=== PATIENT | female | born 1985 | race Caucasian/White ===

== ENCOUNTER 2022-12-20 16:40 | Emergency (ER) | payer OTHER ==
--- NOTE | 2022-12-20 17:35 | CT Report ---
PROCEDURE: CT brain without contrast INDICATIONS: fall, cont headache TECHNIQUE: Noncontrast 4.5 mm thick angled axial sections acquired from the foramen magnum to the vertex. For r adiation dose reduction, the following was used: automated exposure control, adjustment of mA and/or kV according to patient size. COMPARISON: None. FINDINGS: Image quality: Excellent. CSF spaces: Basal cisterns are patent. No extra-axial fluid collections. Ventricles are normal in size and shape. Brain: No midline shift. No intracranial masses or hemorrhage. Fink-white matter interface is norm al. Skull and face: Calvarium and visualized facial bones are intact, without suspicious lesions. Sinuses: Visualized sinuses and mastoids are clear. IMPRESSION: Normal CT of the brain Reviewed by: Segundo Mazariegos MD on 12/20/2022 4:33 PM AKDIANA Approved by: Segundo Mazariegos MD on 12/20/2022 4:33 PM AKDIANA Station ID: [id number]
[2022-12-20] MEDS ORDERED: KETOROLAC 60 MG/2 ML VIAL IM STA (18:03)
[2022-12-20] MEDS ORDERED: PROMETHAZINE 25 MG/1 ML VIAL IM STA (18:03)
[2022-12-20] MEDS ORDERED: diphenhydrAMINE INJ 50 MG/ML VIAL IM STA (18:03)
--- NOTE | 2022-12-20 19:20 | ED Physician Documentation ---
History of Present Illness - Stated complaint Stated Complaint: GLF HEADACHES - Chief complaint Chief Complaint: Trauma Hd/Nk - History obtained from History obtained from: Patient, Family - History of Present Illness Pain level max: 8 Pain level now: 6 - Additonal information Additional information: Patient is a 37-year-old female who presents to the emergency department after ground-level fall 2 days ago which she struck her head and had positive loss of consciousness. Since that time she has had gradually worsening headache. Hi story of migraines in the past, states that this feels similar. No vomiting. Occasional nausea. No fevers. No chills. She fell onto laminate yee. No neck or back pain. Denies any possibility of . Took ibuprofen without relief. Review of Systems Constitutional: denies: Fever, Chills Eyes: reports: Photophobia : denies: Dysuria, Now EGA Skin: denies: Rash Musculoskeletal: denies: Neck pain, Back pain Neurologic: denies: Focal weakness, Numbness PD PAST MEDICAL HISTORY - Past Medical History Past Medical History: No - Allergies Allergies/Adverse Reactions: Allergies Allergy/AdvReac Type Severity Reaction Status Date / Time codeine Allergy Hives Verified 12/20/22 17:07 oxycodone Allergy Hives Verified 12/20/22 17:07 "codones" Allergy Hives Uncoded 12/20/22 17:07 - Living Situation Living Situation: reports: With family Living Arrangement: reports: At home - Social History Does the pt have substance abuse?: No - Family History Family history: reports: Non contributory PD ED PE NORMAL - Vitals Vital signs reviewed: Yes - General General: Alert and oriented X 3, No acute distress - HEENT HEENT: Atraumatic, PERRL, Moist mucous membranes - Neck Neck: Supple, no meningeal sign - Cardiac Cardiac: RRR, Strong equal pulses - Respiratory Respiratory: No respiratory distress, Clear bilaterally - Abdomen Abdomen: Soft, Non tender, Non distended - Derm Derm: Warm and dry - Extremities Extremities: No edema, No calf tenderness / cord - Neuro Neuro: Alert and oriented X 3, home care manager 2-12 intact, No motor deficit, No sensory deficit, Normal speech Eye Opening: Spontaneous Motor: Obeys Commands Verbal: Oriented GCS Score: 15 - Psych Psych: Normal mood, Normal affect Results - Vitals Vitals: Vital Signs - 24 hr 12/20/22 12/20/22 12/20/22 17:03 18:29 19:15 Temperature 36.2 C L 37.0 C Heart Rate 77 87 68 Respiratory 16 16 Rate Blood Pressure 130/78 130/81 H O2 Saturation 99 100 100 Oxygen O2 Source Room air - Rads (name of study) Head CT Relevant Findings:: Final report received, See rad report PD Medical Decision Making - ED course Complexity details: reviewed results, re-evaluated patient, considered differential, d/w patient, d/w family ED course: 37-year-old female status post ground-level fall and head injury 2 days ago, pos itive loss of consciousness. Ongoing headache since that time. Given Toradol, Phenergan, Benadryl IM. Headache resolved. Head CT is negative. We will treat as a possible concussion versus migraine following her closed head injury. Head injury instructions given at bedside. Patient counseled regarding signs and symptoms for which I believe and urgent re-evaluation would be necessary. Patient with good understanding of and agreement to plan and is comfortable going home at this time This document was made in part using voice recognition software. While efforts are made to proofread this document, sound alike and grammatical errors may occur. Departure - Departure Disposition: 01 Home, Self Care Clinical Impression: Closed head injury Qualifiers: Encounter type: initial encounter Qualified Code(s): S09.90XA - Unspecified injury of head, initial encounter Condition: Good Instructions: ED Head Injury Closed Follow-Up: your,doctor in 1 week [Other] Comments: Please follow-up with your doctor in 1 week if not better. Go home and rest tonight. Your head CT does not show any acute abnormalities. Please return if you worsen. Discharge Date/Time: 12/20/22 19:26
[2022-12-20 19:23] VITALS: BP 130/81
== END 2022-12-20 19:26 | disposition home or self-care (01) ==
LOC: ED 16:40
DX: S09.90XA Unspecified injury of head, initial encounter (principal); W18.30XA Fall on same level, unspecified, initial encounter
CPT/HCPCS: 70450; 96372; 99283; 99284; J1200

== ENCOUNTER 2023-03-12 12:56 | Outpatient (CLI) | payer OTHER ==
--- NOTE | 2023-03-12 13:44 | Sleep Patient Instructions ---
Sleep Center Visit Summary - Patient Visit Information Reason for Visit: Initial consult - Patient Instructions Instructions Attached: Sleep Study, Sleep Clinic Visit, Sleep Study Home Monitor Additional Instructions: You will be completing a sleep study, either an in-lab polysomnography (PSG) or home sleep study (HST). You will follow-up in the sleep care office after the sleep study is completed to hear the results and talk about therapy, if needed. You will be called by our office staff to schedule this appointment, but you may contact us with any questions. - Clinic Information Contact: [facility] [address] [place] [id number] [email or web address] T: [phone]
--- NOTE | 2023-03-12 13:55 | SLEEP CARE CONSULTATION ---
Information from patient questionnaire entered by Kush Stanford. I have reviewed and concur with the information entered by Kush Stanford. This document represents the service I personally performed and the decisions made by me, Isela Hameed ARNP. History of Present Illness Service Date and Time: 03/12/2023 1256 Reason for Visit: New patient Chief Complaint: reports: Snoring, Excessive daytime sleepiness, Observed pauses in breathing, Fatigue, Frequent awakenings at night Date of Onset: 7YRS Usual bedtime: 10PM Time it takes to fall asleep: WITHIN A YR Snores at night: Yes Observed to quit breathing while asleep: Yes Sleeps alone due to snoring: Yes Number of times waking at night: 2-3 Reasons for waking at night: reports: Snoring, Gasping for air (not recently), Bathroom, Other (DREAMS). denies: Choking Toss, Turn, or Twitch while sleeping: Yes Recalls having dreams: Yes (sometimes) Usually gets out of bed at: 7-730AM; 8-10AM Feels refreshed in the morning: No Morning headache: Yes (2 times a month, last couple hours) Sleepy or fatigued during the day: Yes Ever fallen asleep while driving: No Takes day naps: Yes (rare, does not like to take a nap, gets grumpy) Dreams during day naps: No Prior sleep studies: Yes Year and Where: last one in [place], [place] at [facility] Additional HPI information: I had the pleasure of seeing KUSH PENA today regarding the possibility of her having a sleep disorder. Her current complaints are snoring, excessive daytime sleepiness, observed pauses in breathing, fatigue and frequent night awakenings. She states she has been diagnosed twice with sleep apnea. Her is in the and she has had to move before she could be set up with treatment. Her last test was done last year at [facility] in 2021 and she says she was told she had moderate sleep apnea. She states her is not sleeping in same room because of her loud snoring. He has told her that she stops breathing during the night. She has woke herself up gasping for air in the past. She has lost weight and then gained some back. She says her snoring was worse when she was thinner. She is always tired but tries to avoid napping because it makes her grumpy. 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 Patient is and lives in . Have you smoked in the past 12 months: No Alcohol use: Yes Alcohol amount and frequency: 1 GLASS ONCE IN A WHILE Caffeine use: Yes Caffeine amount and frequency: 2 CUPS IN THE MORNING Family History Family history of sleep disordered breathing: Yes Family Hx Sleep Apnea: Mother: Snoring, Sleep apnea - Untreated, Sibling: Snoring, Grandparent: Snoring, Sleep apnea - Treated Allergies and Home Medications Known drug allergies: Yes (as listed) Drug allergies reviewed: Yes Home medication list reviewed: Yes Allergy and home medication list: Allergies codeine Allergy (Verified 03/11/23 14:59) Hives oxycodone Allergy (Verified 03/11/23 14:59) Hives "codones" Allergy (Uncoded 03/11/23 14:59) Hives Medications: Wellbutrin XL 150 mg x 3 daily Hydroxyzine 25 mg, prn Hyoscyamine 0.125 mg, 1-2 tabs, as needed Review of Systems Weight gain over past 5 years: 40 Weight loss over past 5 years: 60 Cardiovascular: denies: high blood pressure Gastrointestinal: reports: other (has acid reflux occasionally). denies: heartburn Neurological: reports: headaches Psychiatric: reports: anxiety, depression Ear/Nose/Throat: reports: nasal congestion, sinus problems, nose bleeds, dry mouth/throat, tonsillectomy, wisdom teeth removed Physical Exam Vital signs obtained and entered by: KUSH Lloyd MA Blood Pressure: 128/76 (LEFT ARM) Cuff size: regular Heart Rate: 73 O2 Saturation: 98 Height: 5 ft 5 in Weight: 213 lb 12.8 oz Body Mass Index: 35.6 BMI Classification: Obese Neck circumference: 15.75 Mouth and throat: narrow oropharynx Soft palate: long Hard palate: normal Uvula: normal Uvula visualization: 0% Mallampati Class IV Tongue: enlarged in size with teeth ventura on lateral edges Tonsils: absent bilaterally Neck: normal w/o lymphadenopathy or thyromegaly Heart: regular rate and rhythm Lungs: clear bilaterally Impression and Plan 1. Suspected Obstructive Sleep Apnea-Hypopnea Syndrome, as previously diagnosed and as suggested by a history of loud and irregular snoring, observed cessation of breath while asleep, gasping or choking in sleep, morning headache, frequent awakening during the night, unrefreshed sleep, cognitive impairment, and excessive daytime sleepiness. Narrow oropharynx and obesity are common predisposing factors for obstructive sleep apnea-hypopnea syndrome. I recommend proceeding to polysomnography to confirm the diagnosis and to assess severity. If the patient has significant sleep disordered breathing, a manual CPAP titration study will also be performed to find the optimal treatment pressure. I informed the patient of what the sleep studies involve and after some discussion, obtained agreement to proceed. The pathophysiology of obstructive sleep apnea-hypopnea syndrome was discussed with the patient and health risks of cardiovascular and cerebrovascular disease if not treated. Risks of drowsy driving discussed in detail and patient advised to avoid long distance driving and to tack puller at the first sign of drowsiness. Patient agreed to plan. * Schedule polysomnography +- manual CPAP titration study and return in 1-2 weeks after the study to discuss result and initiate therapy. * Avoid long distance driving or driving when feeling sleepy. * Avoid alcohol, sedative and muscle relaxant around bedtime. * Attempt to lose weight. * Review instructions provided by trained office staff on how to prepare for the sleep study. * Return for follow-up after sleep study completed. Counseling Topics: Weight loss health impact Visit Type: In Office Time Spent with Patient (minutes): 32 Provider Statement: I spent 100% of the Face to Face Visit with the patient with greater than 50% spent counseling the patient and coordination of care.
[2023-03-12 13:59] VITALS: BP 128/76
== END 2023-03-12 12:57 | disposition home or self-care (01) ==
LOC: SC 12:56
PROVIDERS: ATTEND Nurse Practitioner Family
DX: G47.33 Obstructive sleep apnea (adult) (pediatric) (principal); E66.9 Obesity, unspecified; Z68.35 Body mass index [BMI] 35.0-35.9, adult
CPT/HCPCS: 99203; 99212

== ENCOUNTER 2023-04-10 20:29 | Outpatient (CLI) | payer OTHER | END 2023-04-10 20:30 | disposition home or self-care (01) | LOC: SC 20:29 | PROVIDERS: ATTEND Nurse Practitioner Family | DX: G47.33 Obstructive sleep apnea (adult) (pediatric) (principal); E66.9 Obesity, unspecified; Z68.35 Body mass index [BMI] 35.0-35.9, adult | CPT/HCPCS: 95810 ==

== ENCOUNTER 2023-05-12 13:56 | Outpatient (CLI) | payer OTHER ==
--- NOTE | 2023-05-12 14:34 | Sleep Patient Instructions ---
Sleep Center Visit Summary - Patient Visit Information Reason for Visit: Sleep study follow-up - Patient Instructions Instructions Attached: CPAP Dc, CPAP Additional Instructions: You are being started on CPAP therapy with pressure setting at 4-15 cmH2O. You will need to call the sleep care office to set up your follow up once you have your APAP machine and we will schedule a visit to check compliance and response to therapy at that time. You may call the office with any concerns about pressure feeling too low or too much for adjustment, if needed. You should contact DME supplier for any questions or concerns about mask or equipment. Please call office to schedule a follow up appointment in the sleep care office one month after obtaining new CPAP. - Clinic Information Contact: [facility] [address] [place] [address] [email or web address] T: [phone]
--- NOTE | 2023-05-12 14:36 | SLEEP CARE CONSULTATION ---
Information from patient questionnaire entered by Kush Stanford. I have reviewed and concur with the information entered by Kush Stanford. This document represents the service I personally performed and the decisions made by me, Isela Hameed ARNP. History of Present Illness Service Date and Time: 05/12/2023 1356 Initial [place] Sleepiness Scale score: 9 (03/12/23) Current [place] Sleepiness Scale score: 12 (05/12/23) Additional HPI information: KUSH PENA returns for follow up and results of the recently performed polysomnography. Her sleep study showed mild obstructive sleep apnea with an average AHI 6.4 and lee oxygen saturation of 82%. I explained the pathophysiology behind obstructive sleep apnea. We then spent quite a bit of time discussing different treatment options. For mild obstructive sleep apnea, surgery and oral appliance are alternatives to nasal CPAP therapy but in moderate or severe cases, nasal CPAP is the most effective and reliable treatment. Because apnea is primarily in supine position, then positional management therapy could be effective. Methods discussed such as positioning with pillows, using a T-shirt with tennis balls in the back or commercial products that have a pillow format on back to prevent supine sleep. I reviewed the impact of weight changes on sleep apnea and strongly recommended losing weight. After some discussion, the patient opted to go with the nasal CPAP therapy. Nasal autoCPAP set at 4-15 cmH20 will be ordered with rationale explained. A manual titration study will be ordered if unable to find optimal pressure with office adjustments. I explained how CPAP machine works and what to expect when using the machine. Using CPAP every night in order to get used to it was emphasized. Patient advised to put CPAP mask on before getting into bed so as not to fall asleep without CPAP. To assist acclimation to CPAP use, it could also be used for a short time during day while reading or watching TV. The patient was instructed to call the CPAP supplier to discuss any mechanical problem that may occur. If the mask given is uncomfortable or is difficult to keep on through the night even with adjustment, contact the CPAP supplier as many will replace with another mask style if notified before 30 days. If snoring or perceives is not getting enough air or too much air from the machine, notify this office. Patient does not drink alcohol very often. Patient was cautioned about risks of drowsy driving until sleepiness symptoms resolve. Patient denies drowsy driving. Sleep Study - Results Type of Sleep Study: Polysomnography (COMPLETED 04/10/23) Prior sleep studies: Yes Year and Where: last one in [facility] Polysomnography/Home Sleep Study results: IMPRESSION: The quality of the study is good. The patient had normal sleep efficiency. The sleep architecture was relatively normal as well considering the first night effect. Respiratory monitoring showed mild obstructive sleep apnea-hypopnea (AHI = 6.4) associated with oxyhemoglobin desaturation and mild hypoxia (lee oxygen saturation of 82%). The respiratory events occurred almost exclusively during supine sleep (supine AHI = 9.8; nonsupine = 0.81). Snore was light to loud in intensity. There was no significant periodic leg movement of sleep. Cardiac rhythm was normal sinus rhythm without significant arrhythmia. No abnormal behavior (parasomnia) observed during the night. Allergies and Home Medications Known drug allergies: Yes (as listed) Drug allergies reviewed: Yes Home medication list reviewed: Yes (no changes) Allergy and home medication list: Allergies codeine Allergy (Verified 05/11/23 09:46) Hives oxycodone Allergy (Verified 05/11/23 09:46) Hives "codones" Allergy (Uncoded 05/11/23 09:46) Hives Review of Systems Review of systems same as previous: Yes (no changes) Physical Exam Vital signs obtained and entered by: KUSH Lloyd MA Blood Pressure: 137/93 (RIGHT ) Cuff size: wrist Heart Rate: 72 O2 Saturation: 98 Height: 5 ft 5 in Weight: 219 lb 3.2 oz Body Mass Index: 36.4 BMI Classification: Obese Impression and Plan 1. Obstructive Sleep Apnea-Hypopnea Syndrome, mild, with lowest oxygen saturation of 82%. Obviously this is the cause of the patients symptoms of unrefreshed sleep, and excessive daytime sleepiness. Positive pressure therapy could benefit anxiety and depression. As mentioned above, the patient will be started on nasal autoCPAP therapy with pressure set at 4-15 cmH2O. A manual titration study will be completed if unable to find optimal treatment pressure with office adjustments. Compliance guidelines also reviewed. A copy of compliance guidelines will be given for reference at check out. Because the apnea is more severe supine, I instructed to avoid sleeping supine using pillow positioning until able to start CPAP use. 2. Obesity, unspecified. Currently patients BMI is 36.4. Obesity increases the risk of apnea, CPAP pressure requirements and overall health risks especially cardiovascular and diabetes. Thus patient is advised to lose weight. * Nasal auto CPAP therapy, pressure at 4-15 cm H2O. * Attempt to lose weight. * Avoid alcohol consumption near bedtime. * Avoid supine sleep until using CPAP. * The patient is again cautioned about driving until sleepiness completely resolves. * Return one month after CPAP obtained. I will assess response to therapy and compliance at that time. Counseling Topics: Sleeping position, Weight loss health impact Visit Type: In Office Time Spent with Patient (minutes): 22 Provider Statement: I spent 100% of the Face to Face Visit with the patient with greater than 50% spent counseling the patient and coordination of care.
[2023-05-12 14:41] VITALS: BP 137/93; O2SAT 98
== END 2023-05-12 13:57 | disposition home or self-care (01) ==
LOC: SC 13:56
PROVIDERS: ATTEND Nurse Practitioner Family
DX: G47.33 Obstructive sleep apnea (adult) (pediatric) (principal); E66.9 Obesity, unspecified; Z68.36 Body mass index [BMI] 36.0-36.9, adult
CPT/HCPCS: 99212; 99213

== ENCOUNTER 2023-07-10 16:21 | Outpatient (CLI) | payer OTHER ==
--- NOTE | 2023-07-10 16:48 | Sleep Patient Instructions ---
Sleep Center Visit Summary - Patient Visit Information Reason for Visit: First Compliance Visit - Patient Instructions Additional Instructions: You were here for follow up of CPAP therapy. You will be continued on CPAP therapy with pressure at 8-10 cmH2O. Please let us know if the pressure change is uncomfortable and we can make further adjustments of the pressure. You should follow up with sleep care in 1-2 months. You may contact us sooner for any questions or concerns. - Clinic Information Contact: [facility] [address] [place] [id number] [email or web address] T: [phone]
--- NOTE | 2023-07-10 16:52 | SLEEP CARE CONSULTATION ---
Information from patient questionnaire entered by Kush Stanford. I have reviewed and concur with the information entered by Kush Stanford. This document represents the service I personally performed and the decisions made by , Isela Hameed ARNP. History of Present Illness Service Date and Time: 07/10/2023 1621 Previous diagnosis: Mild, Obstructive Sleep Apnea-Hypopnea Syndrome AHI: 6.4 (in 03/2023) Reason for follow up: first compliance Equipment type: CPAP (RESMED Airsense 10; SET UP 05/25/2023) Equipment obtained from: Other ([facility]; initial supplies) Mask style: Nasal Mask brand: Respironics (Dreamwear, medium cushion) Backup mask available: No (will keep old mask when replaced) Last cushion change: last week Prior sleep studies: Yes Year and Where: last one in [place], [place] at [facility] Type of Sleep Study: Polysomnography (COMPLETED 04/10/23) HPI additional information: KUSH PENA was diagnosed to have mild, AHI 6.4, obstructive sleep apnea- hypopnea syndrome and returned today for CPAP therapy first compliance follow- up. Sleep Study - Results Type of Sleep Study: Polysomnography (COMPLETED 04/10/23) Prior sleep studies: Yes Year and Where: last one in [facility] CPAP Compliance Data - Data Reviewed with Patient Average duration of nightly device use: 6 HRS 37 MIN Compliance rate %: 98 (05/27/23-07/07/23; 42/42 days used) Current pressure setting (cmH2O): 4-15 (median 6.6, avg 9.3, max 11) Average residual AHI: 2.1 Central apnea: 0.3 Obstructive apnea: 1.7 Hypopnea: 0.1 Average large leak: 1.6 L/min Subjective Patient concerns: reports: mask discomfort, condensation in mask/hose. denies: aerophagia, air blowing in eyes, mask leak noise, nasal congestion, dry mouth, nose, throat, epistaxis Observed to snore while using device: No Current pressure setting perceived as: comfortable On therapy, patient: reports: sleeping better, awakening more refreshed, being more awake and alert during the day, more rested overall. denies: drowsiness while driving Initial [place] Sleepiness Scale score: 9 (03/12/23) Current [place] Sleepiness Scale score: 9 Allergies and Home Medications Known drug allergies: Yes (as listed) Drug allergies reviewed: Yes Home medication list reviewed: Yes (no changes) Allergy and home medication list: Allergies codeine Allergy (Verified 07/09/23 15:23) Hives oxycodone Allergy (Verified 07/09/23 15:23) Hives "codones" Allergy (Uncoded 07/09/23 15:23) Hives Review of Systems Review of systems same as previous: Yes (no changes) Physical Exam Vital signs obtained and entered by: Isela Prado NP Blood Pressure: 119/72 Cuff size: wrist (right) Heart Rate: 76 O2 Saturation: 99 Height: 5 ft 5 in Weight: 217 lb 12.8 oz Body Mass Index: 36.2 BMI Classification: Obese Impression and Plan 1. Obstructive Sleep Apnea-Hypopnea Syndrome, mild, with good treatment compliance and good apnea control. On CPAP therapy, the patient has better sleep quality and is more rested overall. She did have some condensation in the tubing and she called [employer] and they helped her to resolved the issue. She is getting used to the mask. The patients pressure will be changed to autoCPAP 8- 10 cmH20 to reflect pressures being used. Patient advised to contact me if pressure change is uncomfortable so that it can be adjusted. Goals for apnea control discussed. Patient's apnea severity and rationale for treatment to reduce apnea, improve sleep quality and reduce cardiovascular and cerebrovascular events was reviewed. I also reviewed the benefit of consistent device use of CPAP for depression/anxiety. 2. Obesity, unspecified. Currently patients BMI is 36.2. Obesity increases the risk of apnea, CPAP pressure requirements and overall health risks especially cardiovascular and diabetes. Thus patient is advised to lose weight. * Change auto CPAP pressure to 8-10 cmH2O * Notify me if snoring with mask or feeling that the pressure is too much or too little * Attempt to lose weight * Call this office if any problems using CPAP * Return for follow up in 1-2 months, or sooner if concerns arise Counseling Topics: Weight loss health impact Follow up with Sleep Care in: 1-2 months Visit Type: In Office Time Spent with Patient (minutes): 20 Provider Statement: I spent 100% of the Face to Face Visit with the patient with greater than 50% spent counseling the patient and coordination of care.
[2023-07-10 17:04] VITALS: BP 119/72; O2SAT 99
== END 2023-07-10 16:22 | disposition home or self-care (01) ==
LOC: SC 16:21
PROVIDERS: ATTEND Nurse Practitioner Family
DX: G47.33 Obstructive sleep apnea (adult) (pediatric) (principal); E66.9 Obesity, unspecified; Z68.36 Body mass index [BMI] 36.0-36.9, adult
CPT/HCPCS: 99212; 99213

== ENCOUNTER 2023-07-30 16:13 | Emergency (ER) | payer OTHER ==
[2023-07-30 16:32] VITALS: O2SAT 98
[2023-07-30 16:35] LABS: GLUCOSE, URINE (UA) NEGATIVE (NEGATIVE); KETONES,URINE (UA) TRACE mg/dL (NEGATIVE); LEUKOCYTE ESTERASE, URINE MODERATE (NEGATIVE); NITRITE,URINE NEGATIVE (NEGATIVE); OCCULT BLOOD,URINE LARGE (NEGATIVE); PROTEIN,URINE 30 mg/dL (NEGATIVE); UROBILINOGEN,URINE 0.2 (NORMAL) E.U./dL (NORMAL)
[2023-07-30 16:40] LABS: HCG UR QUAL NEGATIVE
[2023-07-30 16:43] LABS: CLARITY,URINE CLOUDY (CLEAR)
[2023-07-30] MEDS ORDERED: KETOROLAC 30 MG/ML VIAL IVP STA (16:43)
[2023-07-30] MEDS ORDERED: SODIUM CHLORIDE 0.9% 1,000 ML IV STA (16:43)
[2023-07-30 16:44] LABS: BACTERIA,URINE Moderate /HPF (None Seen); BILIRUBIN,URINE NEGATIVE (NEGATIVE); ICTOTEST,URINE NEGATIVE; RBC,URINE TNTC /HPF (0-5); SQUAMOUS EPITHELIAL CELL,UR FEW Squamous (<= Few)
--- NOTE | 2023-07-30 16:44 | ED Physician Documentation ---
History of Present Illness - Stated complaint Stated Complaint: - Chief complaint Chief Complaint: Back Pain - Additonal information Additional information: 37-year-old female presents emergency department for evaluation of 2 days right flank pain and dysuria that began today. She has urgency and frequency. Reported fevers 2 days ago. Some nausea but no vomiting. States she has a history of kidney stones and this feels similar. Past surgical history is most significant for previous hysterectomy sparing 1 ovary secondary to cervical cancer when she was 22. Review of Systems Constitutional: reports: Fever Throat: reports: Reviewed and negative Cardiac: reports: Reviewed and negative Respiratory: reports: Reviewed and negative GI: reports: Abdominal Pain, Nausea. denies: Vomiting : reports: Dysuria, Frequency, Hesitancy Skin: reports: Reviewed and negative Musculoskeletal: reports: Reviewed and negative PD PAST MEDICAL HISTORY - Past Medical History Past Medical History: Yes LICENSED MASSAGE PRACTITIONER: Ovarian cancer, Other : Kidney stones Psych: Depression, Anxiety Other Past Medical History: cervical cancer - Past Surgical History Past Surgical History: Yes /LICENSED MASSAGE PRACTITIONER: Hysterectomy, Oophrectomy - Present Medications Home Medications: Ambulatory Orders Medication Instructions Recorded Confirmed Ibuprofen See Rx Instructions .ROUTE .COMPLEX 03/12/23 07/30/23 buPROPion [Wellbutrin Xl] See Rx Instructions .ROUTE .COMPLEX 03/12/23 07/30/23 Fluconazole 150 mg PO DAILY #2 tablet 07/30/23 cephALEXin [Keflex] 500 mg PO BID #14 cap 07/30/23 - Allergies Allergies/Adverse Reactions: Allergies Allergy/AdvReac Type Severity Reaction Status Date / Time codeine Allergy Hives Verified 07/30/23 16:27 oxycodone Allergy Hives Verified 07/30/23 16:27 "codones" Allergy Hives Uncoded 07/30/23 16:27 - Social History Does the pt smoke?: No Smoking Status: Never smoker Does the pt drink ETOH?: Yes Does the pt have substance abuse?: No PD ED PE NORMAL - General General: Alert and oriented X 3, No acute distress, Well developed/nourished - HEENT HEENT: Atraumatic - Cardiac Cardiac: RRR, No murmur - Respiratory Respiratory: Clear bilaterally - Abdomen Abdomen: Normal bowel sounds, Soft. No: Non tender (Right flank and right lower quadrant tenderness without guarding or rebound) - Back Back: No CVA TTP (right flank tenderness) Results - Vitals Vitals: Vital Signs - 24 hr 07/30/23 07/30/23 16:22 18:26 Temperature 37.0 C Heart Rate 85 72 Respiratory 18 18 Rate Blood Pressure 149/84 H 130/84 H O2 Saturation 98 98 Oxygen O2 Source Room air - Labs Labs: Laboratory Tests 07/30/23 07/30/23 07/30/23 16:00 16:00 16:54 WBC 6.8 RBC 4.99 Hgb 14.1 Hct 43.9 MCV 88.0 MCH 28.3 MCHC 32.1 RDW 13.1 Plt Count 316 MPV 9.8 Neut # (Auto) 4.2 Lymph # (Auto) 2.3 Mcpherson # (Auto) 0.3 Eos # (Auto) 0.1 Baso # (Auto) 0.0 Absolute Nucleated RBC 0.00 Nucleated RBC % 0.0 Sodium Potassium Chloride Carbon Dioxide Anion Gap BUN Creatinine Estimated GFR (MDRD) Glucose Calcium Total Bilirubin AST ALT Alkaline Phosphatase Total Protein Albumin Globulin Albumin/Globulin Ratio Lipase Urine Color YELLOW Urine Clarity CLOUDY Urine pH 7.0 Ur Specific [place] 1.020 Urine Protein 30 H Urine Glucose (UA) NEGATIVE Urine Ketones TRACE Urine Occult Blood LARGE H Urine Nitrite NEGATIVE Urine Bilirubin NEGATIVE Urine Urobilinogen 0.2 (NORMAL) Ur Leukocyte Esterase MODERATE H Urine RBC TNTC H Urine WBC 11-25 H Ur Squamous Epith Cells FEW Squamous Urine Bacteria Moderate H Ur Microscopic Review INDICATED Urine Culture Comments INDICATED Urine HCG, Qual NEGATIVE 07/30/23 16:54 WBC RBC Hgb Hct MCV MCH MCHC RDW Plt Count MPV Neut # (Auto) Lymph # (Auto) Mcpherson # (Auto) Eos # (Auto) Baso # (Auto) Absolute Nucleated RBC Nucleated RBC % Sodium 136 Potassium 4.2 Chloride 104 Carbon Dioxide 27 Anion Gap 5.0 L BUN 12 Creatinine 0.9 Estimated GFR (MDRD) 71 L Glucose 108 H Calcium 9.3 Total Bilirubin 0.3 AST 27 ALT 23 Alkaline Phosphatase 72 Total Protein 7.1 Albumin 4.3 Globulin 2.8 Albumin/Globulin Ratio 1.5 Lipase 17 Urine Color Urine Clarity Urine pH Ur Specific [place] Urine Protein Urine Glucose (UA) Urine Ketones Urine Occult Blood Urine Nitrite Urine Bilirubin Urine Urobilinogen Ur Leukocyte Esterase Urine RBC Urine WBC Ur Squamous Epith Cells Urine Bacteria Ur Microscopic Review Urine Culture Comments Urine HCG, Qual - Rads (name of study) CT abd Relevant Findings:: Final report received (No acute abdominal or pelvic abnormality identified. Appendix is not definitively seen, however there are no secondary CT findings suggest acute appendicitis. No nephroureterolithiasis.) PD Medical Decision Making - ED course Complexity details: reviewed results, re-evaluated patient, d/w patient ED course: 37-year-old female presents emergency department with dysuria urgency and frequency that began today but for the last 2 days she has been having right flank pain reminiscent of previous renal and ureter colic. She endorsed some fevers no vomiting. Her urinalysis today is consistent with acute infection. CBC was unremarkable. Urine chemistry showed no worrisome findings. CT of the abdomen was completed to rule out appendicitis, nephroureterolithiasis and pyelonephritis. It shows no evidence of acute abdominal abnormality. Per my interpretation of the CT scan however I do see a large amount of stool loading especially on the right side of the colon and I suspect this may be what was causing her right-sided abdominal pain. I recommended miralax She will be discharged with prescription for Keflex for treatment of the UTI. She is requesting fluconazole as she gets yeast infections after antibiotics which I think is appropriate. The usual emergent return precautions were discussed for worsening symptoms Departure - Departure Disposition: 01 Home, Self Care Clinical Impression: Right sided abdominal pain UTI (urinary tract infection) Qualifiers: Urinary tract infection type: acute cystitis Hematuria presence: without hematuria Qualified Code(s): N30.00 - Acute cystitis without hematuria Condition: Stable Record reviewed to determine appropriate education?: Yes Prescriptions: Fluconazole 150 mg PO DAILY #2 tablet cephALEXin [Keflex] 500 mg PO BID #14 cap Comments: Jaida you do have a urinary tract infection. A prescription for Keflex was sent to the [facility] in [place]. In order to prevent a yeast infection I recommend that you take 1 tablet of fluconazole about 48 hours after you start the antibiotics and then the second 1 1 to 2 days after you complete the antibiotics. The CT scan did not show definitive evidence of appendicitis and there were no kidney or ureter stones. However as I discussed at the bedside you do have a large amount of stool in the right side ascending colon. This may be the cause of your pain. I would recommend that you take MiraLAX 3-4 times until you have several large loose watery bowel movements.
[2023-07-30 16:58] LABS: BASOPHILS % (AUTO) 0.6 %; EOSINOPHILS # (AUTO) 0.1 10^3/uL (0.0-0.7); EOSINOPHILS % (AUTO) 0.9 %; HCT - HEMATOCRIT 43.9 % (37.0-47.0); HGB - HEMOGLOBIN 14.1 g/dL (12.0-16.0); LYMPHOCYTES # (AUTO) 2.3 10^3/uL (1.5-3.5); MEAN CORPUSCULAR HEMOGLOBIN 28.3 pg (27.0-31.0); MEAN CORPUSCULAR HGB CONC 32.1 g/dL (32.0-36.0); MEAN PLATELET VOLUME 9.8 fL (7.9-10.8); MONOCYTES # (AUTO) 0.3 10^3/uL (0.0-1.0); MONOCYTES % (AUTO) 4.5 %; NEUTROPHILS # (AUTO) 4.2 10^3/uL (1.5-6.6); NEUTROPHILS % (AUTO) 60.9 %; PLT - PLATELET COUNT 316 10^3/uL (130-450); RED BLOOD COUNT 4.99 10^6/uL (4.20-5.40); RED CELL DISTRIBUTION WIDTH 13.1 % (12.0-15.0); WHITE BLOOD COUNT 6.8 x10^3/uL (4.8-10.8)
[2023-07-30 17:15] LABS: ALBUMIN 4.3 g/dL (3.2-5.5)
[2023-07-30 17:33] LABS: ALBUMIN/GLOBULIN RATIO 1.5 (1.0-2.2); BILIRUBIN,TOTAL 0.3 mg/dL (0.2-1.0); CALCIUM 9.3 mg/dL (8.5-10.3); CREATININE 0.9 mg/dL (0.6-1.3); POTASSIUM 4.2 mmol/L (3.5-4.5); TOTAL PROTEIN 7.1 g/dL (6.4-8.9)
[2023-07-30] MEDS ORDERED: iohexoL-300 100 ML VIAL IVP ONE (17:52)
--- NOTE | 2023-07-30 18:26 | CT Report ---
PROCEDURE: ABDOMEN/PELVIS W INDICATIONS: right flank pain; ? appy vs ureter stone CONTRAST: 100mL Omni 300 TECHNIQUE: After the administration of contrast, 5 mm thick sections acquired from the diaphragms to the symphys is. 5 mm thick coronal and sagittal reformats were acquired. For radiation dose reduction, the foll owing was used: automated exposure control, adjustment of mA and/or kV according to patient size. COMPARISON: None FINDINGS: Image quality: Excellent. Lung bases and heart: Unremarkable. Liver: No solid mass. Gallbladder and biliary tree: Spleen: No splenomegaly. Pancreas: No pancreatic ductal dilation. Adrenals: No adrenal nodule. Kidneys and ureters: No hydronephrosis. No renal cystic lesion which requires follow up. No solid mas s. Bowel and peritoneum: No bowel distension. No pathologic free fluid. Lymph nodes: No central or retroperitoneal adenopathy. Vessels: No infrarenal aortic aneurysm. PELVIS Reproductive organs: Unremarkable. Bladder: No abnormal wall thickening, accounting for underdistension. Pelvic lymph nodes: No pelvic adenopathy by size criteria. Bones: No aggressive osseous abnormality. Other: No significant ventral or inguinal hernia. IMPRESSION: 1. No acute abdominal or pelvic abnormality identified. 2. The appendix is not definitively seen, however there are no secondary CT findings to suggest acute appendicitis. 3. No nephroureterolithiasis. Reviewed by: Navjot Coto on 07/30/2023 5:25 PM [facility] Approved by: Navjot Coto on 07/30/2023 5:25 PM [facility] Station ID: [id number]
[2023-07-30 18:27] VITALS: BP 130/84
[2023-07-30] MEDS ORDERED: cephALEXin 250 MG CAPSULE PO STA (18:41)
== END 2023-07-30 18:58 | disposition home or self-care (01) ==
LOC: ED 16:13
DX: N30.00 Acute cystitis without hematuria (principal)
CPT/HCPCS: 36415; 74177; 80053; 81001; 81025; 83690; 85025; 87086; 87181; 96374; 99284; A9270; Q9967; 81003

== ENCOUNTER 2023-09-11 16:05 | Outpatient (CLI) | payer OTHER ==
--- NOTE | 2023-09-11 16:23 | Sleep Patient Instructions ---
Sleep Center Visit Summary - Patient Visit Information Reason for Visit: 2 month followup - Patient Instructions Additional Instructions: You were here for follow up of CPAP therapy. You will be continued on CPAP therapy with pressure at 8-10 cmH2O. You should follow up with sleep care in 3 months. You may contact us sooner for any questions or concerns. - Clinic Information Contact: [facility] [address] [place] [id number] [email or web address] T: [phone]
--- NOTE | 2023-09-11 16:30 | SLEEP CARE CONSULTATION ---
Information from patient questionnaire entered by Kush Stanford. I have reviewed and concur with the information entered by Kush Stanford. This document represents the service I personally performed and the decisions made by me, Isela Hameed ARNP. History of Present Illness Service Date and Time: 09/11/2023 1605 Previous diagnosis: Mild, Obstructive Sleep Apnea-Hypopnea Syndrome AHI: 6.4 (in 03/2023) Reason for follow up: other (2MONTH F/U) Equipment type: CPAP (RESMED Airsense 10; SET UP 05/25/2023) Equipment obtained from: Other ([facility]; getting supplies) Mask style: Nasal Backup mask available: Yes Last cushion change: 4 days ago Prior sleep studies: Yes Year and Where: last one in [facility] Type of Sleep Study: Polysomnography (COMPLETED 04/10/23) HPI additional information: KUSH PENA was diagnosed to have mild, AHI 6.4, obstructive sleep apnea- hypopnea syndrome and returned today for CPAP therapy two month follow-up. Sleep Study - Results Type of Sleep Study: Polysomnography (COMPLETED 04/10/23) Prior sleep studies: Yes Year and Where: last one in [facility] CPAP Compliance Data - Data Reviewed with Patient Average duration of nightly device use: 5 HRS 14 MINS Compliance rate %: 48 (07/11/23-09/08/23; 32/60 days used) Current pressure setting (cmH2O): 8-10 Average residual AHI: 1.8 Central apnea: 0.5 Obstructive apnea: 1.2 Average large leak: 0.2 L/min Subjective Missed days of use due to: reports: travel Patient concerns: reports: dry mouth, nose, throat (dry mouth and throat). denies: aerophagia, mask discomfort, air blowing in eyes, mask leak noise, condensation in mask/hose, nasal congestion, epistaxis Observed to snore while using device: No Current pressure setting perceived as: comfortable On therapy, patient: reports: sleeping better, awakening more refreshed, being more awake and alert during the day, more rested overall. denies: drowsiness while driving Initial [place] Sleepiness Scale score: 9 (03/12/23) Current [place] Sleepiness Scale score: 8 Allergies and Home Medications Known drug allergies: Yes (as listed) Drug allergies reviewed: Yes Home medication list reviewed: Yes (no changes) Allergy and home medication list: Allergies codeine Allergy (Verified 09/09/23 11:47) Hives oxycodone Allergy (Verified 09/09/23 11:47) Hives "codones" Allergy (Uncoded 09/09/23 11:47) Hives Review of Systems Review of systems same as previous: Yes (no changes) Physical Exam Vital signs obtained and entered by: Isela Prado NP Blood Pressure: 127/83 Cuff size: regular (right arm) Heart Rate: 79 O2 Saturation: 98 Height: 5 ft 5 in Weight: 220 lb Body Mass Index: 36.6 BMI Classification: Obese Impression and Plan 1. Obstructive Sleep Apnea-Hypopnea Syndrome, mild, with fair treatment compliance and good apnea control. On CPAP therapy, the patient has better sleep quality and is more rested overall. Patient is compliance affected by a lot of travel in the last few months since right before [place] where she did not take her CPAP with her. I encouraged her to look into a travel machine, if her insurance will pay for it, so that she can travel more easily with the CPAP. She says she will be in town for a while and will be able to bring her compliance up. Patient has significant improvement of their sleep apnea and is satisfied with current CPAP therapy. In the last week she has had some related dry mouth and sore throat. We discussed possible oral venting and encouraged her to use a chinstrap or mouth snoring strips to keep her lips together to reduce dryness. She voiced understanding and agreement. We will have her come back in about 3 months for follow-up. Patient's apnea severity and rationale for treatment to reduce apnea, improve sleep quality and reduce cardiovascular and cerebrovascular events was reviewed. I also reviewed the benefit of consistent device use of CPAP for depression/anxiety. 2. Obesity, unspecified. Currently patients BMI is 36.6. Obesity increases the risk of apnea, CPAP pressure requirements and overall health risks especially cardiovascular and diabetes. Thus patient is advised to lose weight. * Continue auto CPAP pressure at 8-10 cmH2O * Notify me if snoring with mask or feeling that the pressure is too much or too little * Attempt to lose weight * Call this office if any problems using CPAP * Return for follow up in 3 months, or sooner if concerns arise Counseling Topics: Spare mask, Weight loss health impact Follow up with Sleep Care in: 3 months Visit Type: In Office Time Spent with Patient (minutes): 21 Provider Statement: I spent 100% of the Face to Face Visit with the patient with greater than 50% spent counseling the patient and coordination of care.
[2023-09-11 16:49] VITALS: BP 127/83; O2SAT 98
== END 2023-09-11 16:06 | disposition home or self-care (01) ==
LOC: SC 16:05
PROVIDERS: ATTEND Nurse Practitioner Family
DX: G47.33 Obstructive sleep apnea (adult) (pediatric) (principal); E66.9 Obesity, unspecified; Z68.36 Body mass index [BMI] 36.0-36.9, adult
CPT/HCPCS: 99212; 99213

== ENCOUNTER 2024-02-05 09:45 | Outpatient (CLI) | payer OTHER ==
--- NOTE | 2024-02-05 12:11 | XRAY Report ---
PROCEDURE: Foot 3+V RT INDICATIONS: SPRAIN OF MPJ OF RIGHT GREAT TOE TECHNIQUE: 3 views of the foot were acquired. COMPARISON: None. FINDINGS: Bones: No fractures or dislocations. Mild osteoarthritic changes are noted in first MTP joint. No valiente spicious bony lesions. Soft tissues: No tibiotalar joint effusion. Achilles tendon appears normal. IMPRESSION: No acute bony abnormality. Mild first MTP joint osteoarthritis. Reviewed by: Cooper Walls MD on 02/05/2024 12:10 PM PDT Approved by: Cooper Walls MD on 02/05/2024 12:10 PM PDT Station ID: [id number]
== END 2024-02-05 10:00 | disposition home or self-care (01) ==
LOC: DI.N 09:45
PROVIDERS: ATTEND Family Medicine
DX: M19.071 Primary osteoarthritis, right ankle and foot (principal)

== ENCOUNTER 2024-02-11 14:46 | Outpatient (CLI) | payer OTHER ==
--- NOTE | 2024-02-11 15:08 | Sleep Patient Instructions ---
Sleep Center Visit Summary - Patient Visit Information Reason for Visit: 3-month follow-up - Patient Instructions Additional Instructions: You were here for follow up of CPAP therapy. You will be continued on CPAP therapy with pressure at 8-10 cmH2O. I have sent an updated supply prescription to your CPAP supplier. You should follow up with sleep care in 12 months. You may contact us sooner for any questions or concerns. - Clinic Information Contact: [facility] [address] [place] [id number] [email or web address] T: [phone]
--- NOTE | 2024-02-11 15:11 | SLEEP CARE CONSULTATION ---
Information from patient questionnaire entered by Kush Stanford. I have reviewed and concur with the information entered by Kush Stanford. This document represents the service I personally performed and the decisions made by me, Isela Hameed ARNP. History of Present Illness Service Date and Time: 02/11/2024 1446 Previous diagnosis: Mild, Obstructive Sleep Apnea-Hypopnea Syndrome AHI: 6.4 (in 03/2023) Reason for follow up: three month (F/U) Equipment type: CPAP (RESMED Airsense 10; SET UP 05/25/2023) Equipment obtained from: Other ([facility]; getting supplies) Mask style: Nasal Backup mask available: No Last cushion change: 3 weeks Prior sleep studies: Yes Year and Where: last one in [facility] [place] Type of Sleep Study: Polysomnography (COMPLETED 04/10/23) HPI additional information: KUSH PENA was diagnosed to have mild, AHI 6.4, obstructive sleep apnea- hypopnea syndrome and returned today for CPAP therapy three month follow-up. Sleep Study - Results Type of Sleep Study: Polysomnography (COMPLETED 04/10/23) Prior sleep studies: Yes Year and Where: last one in [facility] [place] CPAP Compliance Data - Data Reviewed with Patient Average duration of nightly device use: 7 HRS 5 MINS Compliance rate %: 91 (11/11/23-02/08/24) Current pressure setting (cmH2O): 8-10 Average residual AHI: 2.3 Central apnea: 0.4 Obstructive apnea: 1.7 Hypopnea: 0.1 Average large leak: 0.6 L/min Subjective Missed days of use due to: reports: mask issues Patient concerns: reports: air blowing in eyes (sometimes), mask leak noise, dry mouth, nose, throat (dry mouth). denies: aerophagia, mask discomfort, condensation in mask/hose, nasal congestion, epistaxis Observed to snore while using device: No Current pressure setting perceived as: comfortable On therapy, patient: reports: sleeping better, awakening more refreshed, being more awake and alert during the day, more rested overall. denies: drowsiness while driving Initial [place] Sleepiness Scale score: 9 (03/12/23) Current [place] Sleepiness Scale score: 10 (02/11/24) Allergies and Home Medications Known drug allergies: Yes (as listed) Drug allergies reviewed: Yes Home medication list reviewed: Yes (no changes) Allergy and home medication list: Allergies codeine Allergy (Verified 12/16/23 16:29) Hives oxycodone Allergy (Verified 12/16/23 16:29) Hives "codones" Allergy (Uncoded 12/16/23 16:29) Hives Review of Systems Review of systems same as previous: Yes (NO CHANGE) Physical Exam Vital signs obtained and entered by: KUSH Lloyd MA Blood Pressure: 131/87 (LEFT ARM) Cuff size: long Heart Rate: 76 O2 Saturation: 99 Height: 5 ft 5 in Weight: 222 lb 3.2 oz Body Mass Index: 36.9 BMI Classification: Obese Impression and Plan 1. Obstructive Sleep Apnea-Hypopnea Syndrome, mild, with good treatment compliance and good apnea control. On CPAP therapy, the patient has better sleep quality and is more rested overall. Patient has significant improvement of their sleep apnea and is satisfied with current CPAP therapy. Patient is very comfortable with CPAP use just needs to be able to get more supplies but is not eligible till 14 February. I will update her prescription to make sure there is no problem getting supplies for the next year. Patient's apnea severity and rationale for treatment to reduce apnea, improve sleep quality and reduce cardiovascular and cerebrovascular events was reviewed. I also reviewed the benefit of consistent device use of CPAP for depression/anxiety. 2. Obesity, unspecified. Currently patients BMI is 36.9. Obesity increases the risk of apnea, CPAP pressure requirements and overall health risks especially cardiovascular and diabetes. Thus patient is advised to lose weight. * Continue auto CPAP pressure at 8-10 cmH2O * Update supply prescription * Notify me if snoring with mask or feeling that the pressure is too much or too little * Attempt to lose weight * Call this office if any problems using CPAP * Return for follow up in 12 months, or sooner if concerns arise Counseling Topics: Spare mask, Weight loss health impact Prescriptions: Device supplies Follow up with Sleep Care in: 1 year Visit Type: In Office Time Spent with Patient (minutes): 20 Provider Statement: I spent 100% of the Face to Face Visit with the patient with greater than 50% spent counseling the patient and coordination of care.
[2024-02-11 15:14] VITALS: BP 131/87; O2SAT 99
== END 2024-02-11 14:47 | disposition home or self-care (01) ==
LOC: SC 14:46
PROVIDERS: ATTEND Nurse Practitioner Family
DX: G47.33 Obstructive sleep apnea (adult) (pediatric) (principal); E66.9 Obesity, unspecified; Z68.36 Body mass index [BMI] 36.0-36.9, adult
CPT/HCPCS: 99212; 99213